=== PATIENT | male | born 1965 | race Caucasian/White ===

== ENCOUNTER 2023-05-28 20:45 | Emergency (ER) | payer MEDICAID, OTHER ==
[~2023-05-28] VITALS: Ht 185.4 cm; Wt 61.0 kg
[~2023-05-28 20:45] MED LIST: ESCI-8 PO
[2023-05-28 21:00] VITALS: BP 112/86; PULSE 87; RESP 17; TEMP 97.4
== END 2023-05-28 21:50 | disposition home or self-care (01) ==
LOC: EMS 20:46
DX: M54.9 Dorsalgia, unspecified (principal); G89.29 Other chronic pain; J44.9 Chronic obstructive pulmonary disease, unspecified; F17.210 Nicotine dependence, cigarettes, uncomplicated
CPT/HCPCS: 99283; Z7502

== ENCOUNTER 2023-07-17 19:47 | Inpatient (IN) | payer MEDICAID, OTHER ==
[~2023-07-17] VITALS: Ht 185.4 cm; Wt 60.6 kg
[2023-07-17] MEDS ORDERED: HALOPERIDOL LACTATE 5 MG/ML VIAL ONE (19:50)
[2023-07-17] MEDS ORDERED: DiphenhydrAMINE HCL 50 MG/ML VIAL ONE (19:50)
[2023-07-17] MEDS ORDERED: HALOPERIDOL LACTATE 5 MG/ML VIAL IM ONE ×2 (20:00)
[2023-07-17] MEDS ORDERED: DiphenhydrAMINE HCL 50 MG/ML VIAL IM ONE ×2 (20:00)
[2023-07-17] MEDS ORDERED: LORazepam 2 MG/ML VIAL IM ONE ×2 (20:00)
[2023-07-17] MEDS ORDERED: LORazepam 2 MG TABLET PO PRN (21:45)
[2023-07-17] MEDS ORDERED: ZOLPIDEM TARTRATE 10 MG TABLET PO PRN (21:45)
[2023-07-17 22:26] LABS: BASOPHILS % (AUTO) 2.3 % (0.0-2.0); EOSINOPHILS % (AUTO) 7.1 % (1.0-6.0); HEMATOCRIT 31.1 % (41-53); HEMOGLOBIN 10.6 g/dL (13.5-17.5); LYMPHOCYTES # (AUTO) 1.3 K/uL (1.0-4.8); LYMPHOCYTES % (AUTO) 29.8 % (22.0-44.0); MEAN CORPUSCULAR HEMOGLOBIN 34.3 pg (26.0-34.0); MEAN CORPUSCULAR HGB CONC 33.9 G/dL (31.0-37.0); MEAN CORPUSCULAR VOLUME 101 fL (80-100); MONOCYTES # (AUTO) 0.3 K/uL (0.1-1.0); MONOCYTES % (AUTO) 7.4 % (2.0-9.0); NEUTROPHILS # (AUTO) 2.3 K/uL (1.8-7.7); NEUTROPHILS % (AUTO) 53.4 % (40.0-70.0); PLATELET COUNT (AUTO) 221 K/uL (150-450); RED BLOOD CELL COUNT(AUTO) 3.08 MIL/uL (4.50-5.90); RED CELL DISTRIBUTION WIDTH 15.6 % (11.5-14.5); WHITE BLOOD COUNT (AUTO) 4.4 K/uL (4.5-11.0)
[2023-07-17 22:38] LABS: ALCOHOL, BLOOD (SERUM) 186 mg/dL (0-10)
[2023-07-17 22:40] LABS: ANION GAP 12 mmol/L (8-16); CALCIUM, TOTAL 8.2 mg/dL (8.8-10.5); CARBON DIOXIDE 27 mmol/L (22-29); CHLORIDE 102 mmol/L (98-107); CREATININE 0.63 mg/dL (0.60-1.30); GLOMERULAR FILTR. RATE CALC > 60 mL/min (>60); GLUCOSE,RANDOM 85 mg/dL (70-110); POTASSIUM 3.4 mmol/L (3.5-5.1); SODIUM SERUM 141 mmol/L (136-145); UREA NITROGEN, BLOOD 14 mg/dL (7-18)
[2023-07-17 22:43] LABS: ALANINE AMINOTRANSFERASE 23 U/L (12-78); ALBUMIN 2.9 g/dL (3.4-5.0); ALKALINE PHOSPHATASE 75 U/L (46-116); ASPARTATE AMINOTRANSFERASE 47 U/L (15-37); BILIRUBIN,TOTAL 0.3 mg/dL (0.1-1.0); TOTAL PROTEIN, SERUM 7.1 g/dL (6.4-8.2)
[2023-07-17 23:18] LABS: COVID AG,FIA SOURCE NASAL SWAB
[2023-07-17 23:44] LABS: SARS-COV2 (COVID) ANTIGEN,FIA Negative (Negative)
[2023-07-18] VITALS (10 sets, daily range): BP systolic 118–134; BP diastolic 67–83; PULSE 79–92; RESP 17–18; TEMP 97.9–99.2; O2SAT 96–98
[2023-07-18 09:48] LABS: APPEARANCE,URINE CLEAR (CLEAR); BILIRUBIN,URINE NEGATIVE (NEGATIVE); COLOR,URINE LIGHT YELLOW (YELLOW); GLUCOSE, URINE (UA) NEGATIVE (NEGATIVE); KETONES,URINE TRACE mg/dL (NEGATIVE); LEUKOCYTE ESTERASE ,URINE NEGATIVE (NEGATIVE); NITRATE,URINE NEGATIVE (NEGATIVE); OCCULT BLOOD,URINE NEGATIVE (NEGATIVE); PH,URINE 6.5 (5.0-8.0); PROTEIN,URINE NEGATIVE (NEGATIVE); SPECIFIC GRAVITIY, URINE 1.014 (1.003-1.030); UROBILINOGEN,URINE <=1.0 mg/dL (<=1.0)
[2023-07-18 09:53] LABS: ALCOHOL, URINE DRUG SCREEN POSITIVE (NEGATIVE); AMPHET/METH SCREEN,URINE POSITIVE (NEGATIVE); BARBITURATE SCREEN, URINE NEGATIVE (NEGATIVE); BENZODIAZEPINES SCREEN,URINE NEGATIVE (NEGATIVE); CANNABINOID SCREEN,URINE POSITIVE (NEGATIVE); COCAINE SCREEN,URINE NEGATIVE (NEGATIVE); METHADONE SCREEN, URINE NEGATIVE (NEGATIVE); OPIATE SCREEN,URINE NEGATIVE (NEGATIVE); PHENCYCLIDINE SCREEN,URINE NEGATIVE (NEGATIVE)
[2023-07-18 09:54] LABS: PH,URINE DRUG SCREEN 6.5 (5.0-8.0)
[2023-07-18] MEDS ORDERED: POTASSIUM CHLORIDE 20 MEQ ER TABLET PO ONE (10:30)
[2023-07-18] MEDS ORDERED: ACETAMINOPHEN 325 MG TABLET PO PRN (11:45)
[2023-07-18] MEDS ORDERED: LORazepam 2 MG TABLET PO PRN (11:45)
[2023-07-18] MEDS ORDERED: TUBERCULIN, PURIFIED PROTEIN DERIVATIVE 5 TU/0.1 ML SYRINGE ID ONE (11:45)
[2023-07-18] MEDS ORDERED: PROMETHAZINE HCL 25 MG TABLET PO PRN (11:45)
[2023-07-18] MEDS ORDERED: MAG HYDROX/ALUMINUM HYD/SIMETH ES 30 ML SUSPENSION UDCUP PO PRN (11:45)
[2023-07-18] MEDS ORDERED: LOPERAMIDE HCL 2 MG CAPSULE PO PRN (11:45)
[2023-07-18] MEDS ORDERED: MAGNESIUM HYDROXIDE SUSPENSION 30 ML UDCUP PO PRN (11:45)
[2023-07-18] MEDS ORDERED: INFLUENZA VIRUS VACCINE QVS 2023-24 (6MO+)/PF 60 MCG/0.5 ML SYRINGE IM. ONE (12:00)
[2023-07-18] MEDS ORDERED: PNEUMOCOCCAL VACCINE POLYVALENT 0.5 ML SYRINGE [PPSV23] IM. ONE (12:00)
[2023-07-18] MEDS: MELATONIN 5 MG TABLET PO SCH (20:27)
[2023-07-18] MEDS: MIRTAZAPINE 15 MG TABLET PO SCH (20:27)
[2023-07-18] MEDS: OLANZapine 10 MG RAPDIS TABLET PO SCH (20:28)
[2023-07-18] MEDS ORDERED: OLANZapine 5 MG RAPDIS TABLET PO SCH (21:00)
[2023-07-18] MEDS ORDERED: MIRTAZAPINE 15 MG TABLET PO SCH (21:00)
[2023-07-19 05:48] VITALS: BP 125/77; PULSE 87; RESP 18; TEMP 97.8; O2SAT 98
[2023-07-19] MEDS ORDERED: LORazepam 2 MG TABLET PO PRN (07:00)
[2023-07-19 08:32] VITALS: BP 115/69; PULSE 83; RESP 17; TEMP 97.9; O2SAT 98
[2023-07-19] MEDS: NALTREXONE HCL 50 MG TABLET PO SCH (08:49)
[2023-07-19] MEDS: LORazepam 2 MG TABLET PO SCH ×4 (08:49→20:32)
[2023-07-19] MEDS: OMEGA-3/DHA/EPA/FISH OIL 1,000 MG CAPSULE PO SCH (09:00)
[2023-07-19 09:14] VITALS: BP 115/69; PULSE 83; RESP 17; TEMP 97.9; O2SAT 98
[2023-07-19 12:30] VITALS: BP 119/63; PULSE 69; RESP 18; TEMP 97.8; O2SAT 97
[2023-07-19] MEDS: RisperiDONE 1 MG TABLET PO SCH (16:36)
[2023-07-19 16:43] LABS: ANION GAP 8 mmol/L (8-16); CALCIUM, TOTAL 9.7 mg/dL (8.8-10.5); CARBON DIOXIDE 30 mmol/L (22-29); CHLORIDE 98 mmol/L (98-107); CREATININE 0.71 mg/dL (0.60-1.30); GLOMERULAR FILTR. RATE CALC > 60 mL/min (>60); GLUCOSE,RANDOM 95 mg/dL (70-110); POTASSIUM 4.3 mmol/L (3.5-5.1); SODIUM SERUM 136 mmol/L (136-145); UREA NITROGEN, BLOOD 15 mg/dL (7-18)
[2023-07-19 16:48] LABS: HEMOGLOBIN A1C 4.6 % (3.8-5.6)
[2023-07-19 16:56] LABS: ALBUMIN 3.5 g/dL (3.4-5.0); BILIRUBIN,DIRECT 0.1 mg/dL (0.00-0.20); BILIRUBIN,TOTAL 0.2 mg/dL (0.1-1.0); CHOL/HDL RATIO 1.9 (4.2-7.3); THYROID STIMULATING HORMONE 3.7 uIU/mL (0.36-3.74)
[2023-07-19 18:03] VITALS: BP 119/76; PULSE 108; RESP 18; TEMP 97.7; O2SAT 97
[2023-07-19] MEDS: OLANZapine 10 MG RAPDIS TABLET PO SCH (20:31)
[2023-07-19] MEDS: MIRTAZAPINE 15 MG TABLET PO SCH (20:31)
[2023-07-19] MEDS: MELATONIN 5 MG TABLET PO SCH (20:31)
[2023-07-19 20:39] VITALS: BP 110/75; PULSE 105; RESP 18; TEMP 97.7; O2SAT 96
[2023-07-20 08:01] VITALS: BP 118/73; PULSE 81; RESP 18; TEMP 98.7; O2SAT 100
[2023-07-20] MEDS: RisperiDONE 1 MG TABLET PO SCH ×2 (08:05→17:37)
[2023-07-20] MEDS: NALTREXONE HCL 50 MG TABLET PO SCH (08:05)
[2023-07-20] MEDS: LORazepam 2 MG TABLET PO SCH ×4 (08:05→20:19)
[2023-07-20] MEDS: OMEGA-3/DHA/EPA/FISH OIL 1,000 MG CAPSULE PO SCH (09:00)
[2023-07-20 13:06] VITALS: BP 138/81; PULSE 96; RESP 18; TEMP 97.5; O2SAT 98
[2023-07-20 17:45] LABS: ALBUMIN 3.5 g/dL (3.4-5.0); BILIRUBIN,DIRECT 0.1 mg/dL (0.00-0.20); BILIRUBIN,TOTAL 0.2 mg/dL (0.1-1.0); TOTAL PROTEIN, SERUM 8.5 g/dL (6.4-8.2)
[2023-07-20] MEDS: OLANZapine 10 MG RAPDIS TABLET PO SCH (20:19)
[2023-07-20] MEDS: MELATONIN 5 MG TABLET PO SCH (20:19)
[2023-07-20] MEDS: MIRTAZAPINE 15 MG TABLET PO SCH (20:19)
[2023-07-21] MEDS ORDERED: LORazepam 1 MG TABLET PO PRN (07:00)
[2023-07-21 08:12] VITALS: BP 126/78; PULSE 91; RESP 18; TEMP 97.6; O2SAT 100
[2023-07-21] MEDS: RisperiDONE 1 MG TABLET PO SCH (08:40)
[2023-07-21] MEDS: NALTREXONE HCL 50 MG TABLET PO SCH (08:40)
[2023-07-21] MEDS: LORazepam 1 MG TABLET PO SCH ×4 (08:40→20:19)
[2023-07-21] MEDS: OMEGA-3/DHA/EPA/FISH OIL 1,000 MG CAPSULE PO SCH (08:47)
[2023-07-21 12:53] VITALS: BP 132/82; PULSE 89; RESP 17; TEMP 97.6; O2SAT 98
[2023-07-21] MEDS: OLANZapine 10 MG RAPDIS TABLET PO SCH (20:18)
[2023-07-21] MEDS: MIRTAZAPINE 15 MG TABLET PO SCH (20:19)
[2023-07-21] MEDS: MELATONIN 5 MG TABLET PO SCH (20:19)
[2023-07-21 20:20] VITALS: RESP 18
[2023-07-22 03:06] LABS: HIV 1-2 SCREEN 4TH GEN W/RFLX Non Reactive (Non Reactive)
[2023-07-22] MEDS ORDERED: LORazepam 1 MG TABLET PO PRN (07:00)
[2023-07-22 08:06] LABS: ALBUMIN 2.9 g/dL (3.4-5.0); BILIRUBIN,DIRECT 0.1 mg/dL (0.00-0.20); BILIRUBIN,TOTAL 0.2 mg/dL (0.1-1.0); MAGNESIUM 1.7 mg/dL (1.80-2.40); PHOSPHORUS 4.4 mg/dL (2.5-4.9); TOTAL PROTEIN, SERUM 7.3 g/dL (6.4-8.2)
[2023-07-22 08:24] VITALS: BP 129/88; PULSE 80; RESP 18; TEMP 97.3; O2SAT 100
[2023-07-22] MEDS: THIAMINE 100 MG TABLET PO SCH (08:33)
[2023-07-22] MEDS: NALTREXONE HCL 50 MG TABLET PO SCH (08:33)
[2023-07-22] MEDS: MULTIVITAMINS WITH MINERALS, THERAPEUTIC TABLET PO SCH (08:33)
[2023-07-22] MEDS: OMEGA-3/DHA/EPA/FISH OIL 1,000 MG CAPSULE PO SCH (08:33)
[2023-07-22] MEDS: FOLIC ACID 1 MG TABLET PO SCH (08:33)
[2023-07-22] MEDS: OLANZapine 10 MG RAPDIS TABLET PO SCH (20:12)
[2023-07-22] MEDS: MELATONIN 5 MG TABLET PO SCH (20:12)
[2023-07-22] MEDS: MIRTAZAPINE 15 MG TABLET PO SCH (20:12)
[2023-07-22 21:56] VITALS: RESP 18
[2023-07-23 08:54] VITALS: BP 110/70; PULSE 90; RESP 18; TEMP 97.6; O2SAT 98
[2023-07-23] MEDS: FOLIC ACID 1 MG TABLET PO SCH (09:05)
[2023-07-23] MEDS: OMEGA-3/DHA/EPA/FISH OIL 1,000 MG CAPSULE PO SCH (09:05)
[2023-07-23] MEDS: THIAMINE 100 MG TABLET PO SCH (09:06)
[2023-07-23] MEDS: NALTREXONE HCL 50 MG TABLET PO SCH (09:06)
[2023-07-23] MEDS: MULTIVITAMINS WITH MINERALS, THERAPEUTIC TABLET PO SCH (09:06)
[2023-07-23] MEDS: OLANZapine 5 MG RAPDIS TABLET PO PRN (12:26)
[2023-07-23] MEDS ORDERED: PALIPERIDONE PALMITATE 234 MG/1.5 ML SYRINGE IM ONE (18:00)
[2023-07-23] MEDS: MIRTAZAPINE 15 MG TABLET PO SCH (21:24)
[2023-07-23] MEDS: MELATONIN 5 MG TABLET PO SCH (21:24)
[2023-07-23] MEDS: OLANZapine 10 MG RAPDIS TABLET PO SCH (21:24)
[2023-07-23 22:42] VITALS: RESP 18
[2023-07-24] MEDS: NALTREXONE HCL 50 MG TABLET PO SCH (08:00)
[2023-07-24] MEDS: THIAMINE 100 MG TABLET PO SCH (08:03)
[2023-07-24] MEDS: FOLIC ACID 1 MG TABLET PO SCH (08:03)
[2023-07-24] MEDS: MULTIVITAMINS WITH MINERALS, THERAPEUTIC TABLET PO SCH (08:03)
[2023-07-24] MEDS: OMEGA-3/DHA/EPA/FISH OIL 1,000 MG CAPSULE PO SCH (08:03)
[2023-07-24] MEDS: OLANZapine 5 MG RAPDIS TABLET PO PRN (08:03)
[2023-07-24 08:12] VITALS: BP 104/72; PULSE 86; RESP 19; TEMP 97.3; O2SAT 99
[2023-07-24] MEDS ORDERED: MELA5TAB40 PO (16:05)
[2023-07-24] MEDS ORDERED: MIRT-89 PO (16:05)
[2023-07-24] MEDS ORDERED: OLAN10TA26 PO (16:05)
[2023-07-24] MEDS ORDERED: NALT50TA PO (16:05)
[2023-07-24] MEDS ORDERED: OMEG-135 PO (16:05)
[2023-07-24] MEDS: OLANZapine 10 MG RAPDIS TABLET PO SCH (20:10)
[2023-07-24] MEDS: MELATONIN 5 MG TABLET PO SCH (20:10)
[2023-07-24] MEDS: MIRTAZAPINE 15 MG TABLET PO SCH (20:10)
[2023-07-24 20:59] VITALS: BP 113/69; PULSE 102; RESP 18; TEMP 97.9; O2SAT 97
[2023-07-25] MEDS: OMEGA-3/DHA/EPA/FISH OIL 1,000 MG CAPSULE PO SCH (08:26)
[2023-07-25] MEDS: MULTIVITAMINS WITH MINERALS, THERAPEUTIC TABLET PO SCH (08:26)
[2023-07-25] MEDS: FOLIC ACID 1 MG TABLET PO SCH (08:26)
[2023-07-25] MEDS: THIAMINE 100 MG TABLET PO SCH (08:26)
[2023-07-25] MEDS: NALTREXONE HCL 50 MG TABLET PO SCH (08:27)
[2023-07-25 08:56] VITALS: BP 109/76; PULSE 101; RESP 18; TEMP 97.8; O2SAT 98
[2023-07-27] MEDS ORDERED: PALIPERIDONE PALMITATE 156 MG/ML SYRINGE IM ONE (09:00)
== END 2023-07-25 15:04 | disposition home or self-care (01) | DRG 750 ==
LOC: EMS 19:47 → 3EC 07-18 09:15
PROVIDERS: ADMIT Psychiatry & Neurology Psychiatry; ATTEND Psychiatry & Neurology Psychiatry
DX: F25.9 Schizoaffective disorder, unspecified (principal); D61.818 Other pancytopenia; R45.851 Suicidal ideations; F17.210 Nicotine dependence, cigarettes, uncomplicated; F32.A Depression, unspecified; J44.9 Chronic obstructive pulmonary disease, unspecified; Z20.822 Contact with and (suspected) exposure to COVID-19; K21.9 Gastro-esophageal reflux disease without esophagitis; E87.6 Hypokalemia; D72.819 Decreased white blood cell count, unspecified; F19.10 Other psychoactive substance abuse, uncomplicated; Z59.00 Homelessness unspecified; Z91.148 Patient's other noncompliance with medication regimen for other reason; Z79.899 Other long term (current) drug therapy
CPT/HCPCS: 80048; 80053; 80061; 80076; 80307; 81003; 83036; 83735; 84100; 84439; 84443; 85025; 86592; 87389; 99285; G0480; J1200; J1630; J2060; Q9967